=== PATIENT | male | born 2000 | race Caucasian/White ===

== ENCOUNTER 2024-03-07 11:09 | Outpatient (AMB) | payer BC, SELFPAY ==
--- NOTE | 2024-03-07 11:17 | A.OFFPC_ITS ---
Vital Signs 03/07/24 11:27 Height 6 ft 1 in Weight 165 lb BMI 21.8 BP 118/66 Blood Pressure Location Rt brachial Position Sitting Respiration 12 Pulse 78 Pulse Source Pulse Oximeter Pulse Oximetry (%) 99 Oxygen Delivery Method Room Air Intake Visit Reasons: RN MANAGED CARE-PE Intake Note: new patient to [facility] Required: No Allergies No Known Allergies Allergy (Verified 03/07/24 11:38) Medication List - Last Reconciled 03/07/24 by GISELA Guo No Known Home Meds Tobacco use date assessed: 03/07/24 Dental Screening Dental Screen Date: 03/07/24 Did you have a dental visit in the last 12 months?: Yes Did you have a dental problem in the last 6 months where you did not have access to dental care?: No Was dental information given to patient?: Patient has dentist HPI HPI Comments History of Present Illness Details 23 y/o M with GERD Family hx: Dad etoh, brother crohns, mom asthma Health Maintenance: Flu declined Tdap declined The patient is a 23-year-old male presenting to [facility] & for CPE. No medical records available to me. COVID-19 infection from early to late January, which was managed symptomatically with [id number]-byuibrr medications such as Advil. Post-COVID, he experienced a persistent cough which has now mostly resolved but occasionally recurs. This is accompanied by no history of asthma despite a family history, and he has not used an inhaler since discontinuing sports. c/o gastroesophageal reflux disease (GERD) Skin concerns: presents as red bumps on his lower back and side of R thigh Regarding gastroesophageal reflux disease, the patient has noticed episodes of reflux, which were particularly well controlled with dietary changes while living independently in [place]. He identified triggers such as sugar and certain dairy and water types, preferring alkaline options like [place] water. At times, he uses TUMS for relief. He was evaluated several years ago via endoscopy, which took place during his late adolescence but cannot recall specific details. He experiences symptoms contingent on dietary choices, particularly when consuming processed foods or drinking before sleeping. - Exercise: Previously active in sports, now focuses on workout activities sporadically. - Nutrition: Consumes a diet low in proc essed sugar and meat when possible, noted difference when living alone. - Substance use: Denies smoking and vapi ng. Review of Systems - Respiratory: Reports occasional cough post-COVID. - Skin: Reports red bumps on lower back and sides. - Gastrointestinal: Reports episodes of acid reflux, controlled with dietary changes and occasionally with TUMS. - Musculoskeletal: Denies recent exercis e-induced issues. General: Well developed, well nourished, in no acute distress. Appears stated age. Head: Normocephalic, atraumatic. Eyes: Pupils are equal, round and reactive to light and accommodation. Conjunctivae are clear. Vision grossly normal. Ears: TMs clear AU, EACS WNL Nose: Patent, without discharge. Mouth: There are no ulcers or lesions noted. No inflammation, no post nasal drip, no plaques nor exudates. Neck: Supple, no adenopathy or thyromegaly. Lungs: Clear to auscultation bilaterally. No rales, rhonchi or wheeze noted. Good air flow in all darden. Heart: Regular rate and rhythm. No murmurs, click, rubs or gallops are noted. Abdomen: Bowel sounds present in all quadrants. The abdomen is soft, nontender, with no masses or organomegaly noted. No hernias are noted. Musculoskeletal: Joints are nontender, without swelling, redness, or effusions. Range of motion is observed to be normal. Pulses: Peripheral pulses are equal and palpable bilaterally. Extremities: No clubbing, cyanosis nor edema is noted. Neurologic: Gait and station normal. Cranial Nerves 2-12 intact. Motor strength grossly symmetrical and intact. No sensory loss. Balance normal. Skin: No rashes, ulcers, or lesions noted. Turgor is good. Skin color is good. Hair and nails are without abnormalities. Scattered erythematous papules on posterior trunk, top of right buttocks and lateral right thigh consistent with keratosis pilaris Psych: Normal eye contact, affect and mood appropriate, and normal interactions. Patient is alert and appropriate to context. Discussion Notes I discussed with the patient the need for dietary modifications to manage gastroesophageal reflux disease effectively, emphasizing the importance of monitoring for symptoms. We reviewed the potential risks of chronic GERD, including esophageal damage and increased cancer risk. I explained the benefit of a short Protonix course if symptoms persist. For skin concerns, I recommended using a salicylic acid body wash to address folliculitis, noting its prevalence and treatment effectiveness. He can also trial using a retinoid topical cream. We addressed the relevance of routine blood work for general monitoring and explained how annual physical exams contribute to preventive care. Patient does report that he faints with blood draws and would prefer to have them done in the nonfasting state. I reinforced the necessity of signing up for the patient portal for efficient communication and accessing lab results. Follow-up discussions centered on ensuring active health management and prevention. Plan - Monitor GERD symptoms; dietary modific ations suggested, including the reduction of sugar intake and the avoidance of trigger foods. - Consider short course of Protonix for more severe or frequent GERD symptoms, with a reassessment in four weeks. - Recommend salicylic acid body wash for skin lesions to manage folliculitis effectively. Or topical retinol, available OTC. - Schedule for routine blood work to mon itor cholesterol, kidney function, and other health indicators. - Advise patient on the importance of an nual physical exams to maintain health monitoring and preventative care. RTO 1 year for CPE, sooner PRN Patient was informed and verbally consented to the use of an ambient scribe for clinic note documentation during this visit. [facility] Medical History (Updated 03/07/24 @ 12:09 by Sharona Russo [facility]) No pertinent past medical history Surgical History (Updated 03/07/24 @ 11:27 by Lisa Rodríguez MA) H/O wrist surgery Family History (Updated 03/07/24 @ 11:26 by Lisa Rodríguez MA) Sister Mental health disorder Asthma Father Substance abuse Mother Asthma Brother Asthma Social History (Updated 03/07/24 @ 11:25 by Lisa Rodríguez MA) Household Members: Family Both parents involved: No Caregiver staying overnight: No Housing: House Are you a primary rn progressive care unit to a significant other at home: No Do you presently have visiting nurse or other home services: No 75 years or older and lives alone: No Alcohol intake: current Alcohol intake frequency: a few times a month Patient Tobacco Use Status: Never used Tobacco e-Cigarette/Vaping Use: Never Used Second Hand Smoke Exposure: No Current occupational status: employed Current occupation: buisness Cognitive needs: No Hearing needs: No Vision needs: No Questionnaire PHQ-9 Over the last 2 weeks, how often have you been bothered by any of the following problems? 1. Little interest or pleasure in doing things: not at all 2. Feeling down, depressed, or hopeless: not at all 3. Trouble falling or staying asleep, or sleeping too much: not at all 4. Feeling tired or having little energy: not at all 5. Poor appetite or overeating: not at all 6. Feeling bad about yourself - or that you are a failure or have let yourself or your family down: not at all 7. Trouble concentrating on things, such as reading the newspaper or watching television: not at all 8. Moving or speaking so slowly that other people could have noticed. Or the opposite - being so fidgety or restless that you have been moving around a lot more than usual: not at all 9. Thoughts that you would be better off or of hurting yourself in some way: not at all Total score: 0 Depression Screening Interpretation: Negative Depression Screening Done: Yes 96470 - PHQ-9 Billing: Yes Source: Developed by Drs. Alan Wick, Coreen De Leon, Haim High and colleagues, with an educational celina from [employer]. Thrive Questionnaire Date Thrive assessed: 03/07/24 I am a: Patient What is your living situation today?: I have a steady place to live Within the past 12 months, did the food you bought not last and you didn't have the money to get more?: Never true Within the past 12 months, did you worry whether your food would run out before you got money to buy more?: Never true Do you have trouble paying for medicines?: No Do you have trouble getting transportation to medical appointments?: No Do you have trouble paying your heating and electricity bill?: No Do you have trouble taking care of your child, family member or friend?: No Do you have trouble with day-to-day activities such as bathing, preparing meals, shopping, managing finances, etc.?: No Are you currently unemployed and looking for a job?: No Are you interested in more education?: No Please select the resources that you would like help with: None Currently or been in a relationship where the following occur: No concerns reported THRIVE Score: 0 AUDIT C Alcohol Use Questionnaire (AUDIT-C) 1. How often do you have a drink containing alcohol?: Monthly or less 2. How many drinks containing alcohol do you have on a typical day when you are drinking?: 1 or 2 3. How often do you have six or more drinks on one occasion?: Never Total Score: 1 Score Reviewed/Action Taken: Yes ERMA-7 AMB Questionnaire ERMA-7 Date ERMA - 7 assessed: 03/07/24 Feeling nervous, anxious, or on edge: 0 = Not at all Not being able to stop or control worryin = Not at all Worrying too much about different things: 0 = Not at all Trouble relaxin = Not at all Being so restless that it is hard to sit still: 0 = Not at all Becoming easily annoyed or irritable: 0 = Not at all Feeling afraid as if something awful might happen: 0 = Not at all Total ERMA-7 score (0-4 normal; 5-9 mild; 10-14 moderate; 15-21 severe): 0 Source: Developed by Drs. Alan Wick, Coreen De Leon, Haim High and colleagues, with an educational celina from [employer]. ERMA-7 Assessment Billing ERMA-7 Assessment Tool: ERMA-7 Assessment 80077 Physical exam (Primary Care) Vital Signs: Last Vital Signs Pulse 78 03/07/24 11:27 Resp 12 03/07/24 11:27 BP 118/66 03/07/24 11:27 Pulse Ox 99 03/07/24 11:27 Oxygen Delivery Method Room Air 03/07/24 11:27 BMI result Body Mass Index 21.8 Tobacco/Smoking Status: Tobacco use Status Tobacco use date assessed 03/07/24 03/07/24 11:29 Patient Tobacco Use Status Never used Tobacco 03/07/24 11:29 e-Cigarette/Vaping Use Never Used 03/07/24 11:29 PHQ-9: PHQ-9 Score PHQ-9: Total score 0 03/07/24 11:40 Depression Screening Interpretation: Negative Thrive Assessment: Date of Thrive Assessment Date Thrive assessed 03/07/24 03/07/24 11:19 Currently or been in a relationship where the following occur: No concerns reported Coding Level of Care Code New Pt Prev Care 18-39yr(73092 Diagnoses Encounter for general adult medical examination without abnormal findings Z00.00 Gastroesophageal reflux disease with esophagitis without hemorrhage K21.00 Esophagitis bleeding: without hemorrhage Keratosis pilaris L85.8 Personal history of COVID-19 Z86.16 Laboratory exam ordered as part of routine general medical examination Z00.00 Additional Codes ERMA-7 Assessment Billing - ERMA-7 Assessment Tool: ERMA-7 Assessment 74137 ([id number]) PHQ-9 - 14836 - PHQ-9 Billing: Yes ([id number]) Assessment & Plan Assessment & Plan (1) Encounter for general adult medical examination without abnormal findings: Code(s): Z00.00 - Encounter for general adult medical examination without abnormal findings (2) GERD with esophagitis: Code(s): K21.00 - Gastro-esophageal reflux disease with esophagitis, without bleeding Category: Medical Qualifiers: Esophagitis bleeding: without hemorrhage Qualified Code(s): K21.00 - Gastro-esophageal reflux disease with esophagitis, without bleeding (3) Keratosis pilaris: Code(s): L85.8 - Other specified epidermal thickening Category: Medical (4) Personal history of COVID-19: Code(s): Z86.16 - Personal history of COVID-19 Category: Medical (5) Laboratory exam ordered as part of routine general medical examination: Code(s): Z00.00 - Encounter for general adult medical examination without abnormal findings Category: Medical Plan . Orders: Orders Comprehensive Met. Panel Today Z00.00 - Encounter for general adult medical examination without abnormal findings Complete Blood Count no Diff Today Z00.00 - Encounter for general adult medical examination without abnormal findings Hemoglobin A1c Today Z00.00 - Encounter for general adult medical examination without abnormal findings LDL Cholesterol Direct Today Z00.00 - Encounter for general adult medical examination without abnormal findings Microalbumin, Random (w Creat) Today Z00.00 - Encounter for general adult medical examination without abnormal findings TSH reflex Free T4 Today Z00.00 - Encounter for general adult medical examination without abnormal findings Vitamin B12 and Folate Today Z00.00 - Encounter for general adult medical examination without abnormal findings Patient Instructions: Try Selsun Blue Shampoo with salicylic acid, wash daily with this or you can use an over the counter cream with retinol in it at night. An example is Gold Echols. Walk-In Care (Urgent Care): We Make it Easy Walk-in for urgent medical issues such as: ? Seasonal Allergies ? Insect Bites ? Cough ? Diarrhea ? Acute Asthma Attacks ? Back, Knee or Joint Pain ? Ear Infection ? Fever without a Rash ? Headaches ? Nausea ? [place] Eye, Rash or Skin Irritation ? Sore Throat ? Sports Physicals ? Vomiting Most insurances are accepted. Patients do not need to be part of the [facility] to seek care at the walk-in clinic. Locations [address] , [place] [address] ? [phone] [facility] Walk-In Care in [place] provides services to ages 18 and over. Open Sunday-Sunday: 8 a.m. to 5 p.m. and Sunday: 9 a.m. to 3 p.m.* *Hours may vary due to staffing availability. To confirm Walk-In Care hours in [place], please call [phone]. [address] [place] [address] ? [phone] [facility] Walk-In Care in [place] provides services to ages 12 and over. Open Sunday-Sunday: 8 a.m. to 5 p.m. Hours may vary due to staffing availability. To confirm Walk-In Care hours in [place], please call [phone]. LABORATORY SERVICES: [facility] ? Primary Location [address] [place] [address] Sunday through Sunday 6:00 AM ? 5:00 PM Sunday 7:00 AM ? 11:00 AM* [phone] The [facility] is centrally located near the front entrance of the [facility] for easy outpatient access. Convenient parking is provided for outpatients. *Hours may vary due to staffing availability. To confirm Laboratory hours for any location, please call [phone]. Offsite Location For your convenience, we offer offsite laboratory draw stations at the following locations: [address] [place] [address] ? [facility] [address], [address] [place] [address] Sunday through Sunday 7:30 AM ? 1:00 PM* [phone] *Hours may vary due to staffing availability. To confirm Laboratory hours for any location, please call [phone]. [place] ? [address] Sunday through Sunday 6:00 AM ? 3:30 PM* Sunday 6:30 AM ? 3 PM* [phone] *Hours may vary due to staffing availability. To confirm Laboratory hours for any location, please call [phone]. [address] [facility] Sunday through Sunday 7:30 AM ? 4:00 PM* [phone] *Hours may vary due to staffing availability. To confirm Laboratory hours for any location, please call [phone]. [address] [facility] Sunday through 9:00 AM ? 4:00 PM* *Hours may vary due to staffing availability. To confirm Laboratory hours for any location, please call [phone]. Appointments are not necessary. Walk-ins are welcome. Like all the departments throughout the [facility], our Lab undergoes frequent reviews to ensure the quality and accuracy of test results, and our staff takes special pride in its status as a nationally accredited facility. Patient Portal: ONE PATIENT. ONE RECORD. BETTER CARE. [facility] has a fully integrated, cutting- edge mobile electronic health information system that has revolutionized the way we care for our patients and manage our organization. This system improves communication and coordination enabling us to provide safe, higher-quality care, and an overall positive experience for staff and patients. Our first priority, as always, is to deliver the highest quality care possible. The system is running in the background supporting that priority. This portal is for all [facility] and [facility] services and practices. If you are experiencing any technical difficulties with enrolling or logging into the Patient Portal please complete the [facility] Patient Portal Technical Support Form. [facility] and [facility] now offers a new secure on-line interactive tool for patients to review their health information ? ?Patient Portal. This interactive web portal will enable patients and their families to take an active role in their care by providing easy, secure access to their health information via the internet. The Patient Portal provides patients with instant access to their health information, including laboratory results, medications, allergies, demographic information, visit history, and more. In addition to managing their own care, parents and health care proxies with authorized consent will appreciate the ability to access the records of those individuals for whom they provide care. Please note: if you wish to gain access (Proxy) to another patient?s portal, you will be required to come to the Medical Records Department in person at [facility]. Both the patient giving proxy access and the proxy will need to provide photo identification and complete the appropriate authorization. The Patient Portal also allows track their appointments online. The [facility] Patient Portal also saves patients time by allowing them to submit updates to their demographic and contact information prior to their visits. Portal email notifications will also alert patients to any new activity on their portal, such as test results and new appointments. In order to initially enroll in the [facility] Patient Portal, you will need to enter some required information including the following: * your [facility] Medical Record number * your personal home email address * name * date of Please note: In order to enroll in the [facility] Patient Portal, we need to have your email address on file in your electronic medical record. ?The email address needs to be specific for one person (yourself) in order for your Portal enrollment to be successful. ?You can update your email address in person with our Registration staff when you are registering for a hospital visit. ?Otherwise, you will need to come to the Health Information Management (Medical Records) Department at [facility]. ?We are open from Sunday ? Sunday from 7:30 a.m. ? 4:30 p.m. ?You will be required to present a photo id. Once you have successfully enrolled in the Patient Portal, you will receive a one-time user id and password for the Portal, sent to your email address. ?This will allow you to log into the Patient Portal within 99 hrs and reset your own logon id and password, and define personal security questions. ?Once your pe rmanent login and password have been set, you can log into the [facility] Patient Portal at any time via the blue button above or from the Portal Logon button on any page of the [facility] website. [facility] and [facility] encourage all of our patients to enroll in Patient Portal as it presents a valuable opportunity for patients and their families to actively participate in their care and stay healthy Welcome to [facility]. ?We look forward to working with you. Health screenings for men You should visit your health care provider regularly, even if you feel healthy. The purpose of these visits is to: Screen for medical issues Assess your risk for future medical problems Encourage a healthy lifestyle Update vaccinations and other preventive care services Help you get to know your provider in case of an illness Information Even if you feel fine, you should still see your provider for regular checkups. These visits can help you avoid problems in the future. For example, the only way to find out if you have high blood pressure is to have it checked regularly. High blood sugar and high cholesterol level also may not have any symptoms in the early stages. Simple blood tests can check for these conditions. There are specific times when you should see your provider or receive specific health screenings. The [place] Preventive Services Task Force publishes a list of recommended screenings. Below are screening guidelines for men ages 40 to 64. BLOOD PRESSURE SCREENING Have your blood pressure checked at least once every year. Watch for blood pressure screenings in your area. Ask your provider if you can stop in to have your blood pressure checked. Ask your provider if you need your blood pressure checked more often if: You have diabetes, heart disease, kidney problems, or are overweight or have certain other health conditions You have a first-degree relative with high blood pressure You are Black Your blood pressure top number is from 120 to 129 mm Hg, or the bottom number is from 70 to 79 mm Hg If the top number is 130 mm Hg or greater or the bottom number is 80 mm Hg or greater, this is considered stage 1 hypertension. Schedule an appointment with your provider to learn how you can lower your blood pressure. Effects of age on blood pressure CHOLESTEROL SCREENING Cholesterol screening should begin at age 35 for men with no known risk factors for coronary heart disease. Repeat cholesterol screening should take place: Every 5 years for men with normal cholesterol levels More often if changes occur in lifestyle (including weight gain and diet) More often if you have diabetes, heart disease, kidney problems, or certain other conditions COLORECTAL CANCER SCREENING If you are under age 45, talk to your provider about getting screened. You may need to be screened if you have a strong family history of colon cancer or polyps. Screening may also be considered if you have risk factors such as a history of inflammatory bowel disease or polyps. If you are age 45 to 75, you should be screened for colorectal cancer. There are several screening tests available: A stool-based fecal occult blood (gFOBT) or fecal immunochemical test (FIT) every year A stool sDNA test every 1 to 3 years Flexible sigmoidoscopy every 5 years or every 10 years with stool testing FIT done every year CT colonography (virtual colonoscopy) every 5 years Colonoscopy every 10 years You may need a colonoscopy more often if you have risk factors for colorectal cancer, such as: Ulcerative colitis A personal or family history of colorectal cancer A history of growths in your colon called adenomatous polyps DENTAL EXAM Go to the dentist once or twice every year for an exam and cleaning. Your dentist will evaluate if you have a need for more frequent visits. DIABETES SCREENING All adults who do not have risk factors for diabetes should be screened starting at age 35 and repeated every 3 years. If you have other risk factors for diabetes, such as a first degree relative with diabetes, overweight or obesity, high blood pressure, prediabetes, or a history of heart disease, you may be tested more often. If you are overweight and have other risk factors, such as high blood pressure and are planning to become , screening is recommended. EYE EXAM Have an eye exam every 2 to 4 years ages 40 to 54 and every 1 to 3 years ages 55 to 64. Your provider may recommend more frequent eye exams if you have vision problems or glaucoma risk. Have an eye exam that includes an examination of your retina (back of your eye) at least every year if you have diabetes. IMMUNIZATIONS Commonly needed vaccines include: Flu shot: get one every year COVID-19 vaccine: ask your provider what is best for you Tetanus-diphtheria and acellular pertussis (Tdap) vaccine: have as one of your tetanus-diphtheria vaccines if you did not receive it as an adolescent Tetanus-diphtheria: have a booster (or Tdap) every 10 years Varicella vaccine: receive 2 doses if you never had chickenpox or the varicella vaccine and were born in 1979 or after Hepatitis B vaccine: receive 2, 3, or 4 doses, depending on your exact circumstances, if you did not receive these as a child or adolescent, until age 59 Shingles (herpes zoster) vaccine: at or after age 50 Ask your provider if you should receive other immunizations, especially if you have certain medical conditions, such as diabetes or are at increased risk for some diseases such as pneumonia. INFECTIOUS DISEASE SCREENING Screening for hepatitis C: all adults ages 18 to 79 should get a one-time test for hepatitis C. Screening for human immunodeficiency virus (HIV): all people ages 15 to 65 should get a one-time test for HIV. Depending on your lifestyle and medical history, you may need to be screened for infections such as syphilis, chlamydia, and other infections. LUNG CANCER SCREENING You should have an annual screening for lung cancer with low-dose computed tomography (LDCT) if: You are age 50 to 80 years AND You have a 20 pack-year smoking history AND You currently smoke or have quit within the past 15 years OSTEOPOROSIS SCREENING If you are age 50 to 64 and have risk factors for osteoporosis, you should discuss screening with your provider. Risk factors can include long-term steroid use, low body weight, smoking, heavy alcohol use, having a fracture after age 50, or a family history of hip fracture or osteoporosis. Osteoporosis PHYSICAL EXAM All adults should visit their provider from time to time, even if they are healthy. The purpose of these visits is to: Screen for diseases Assess risk of future medical problems Encourage a healthy lifestyle Update vaccinations and other preventive care services Maintain a relationship with a provider in case of an illness Your height, weight, and body mass index (BMI) should be checked at every exam. During your exam, your provider may ask you about: Depression and anxiety Diet and exercise Alcohol and tobacco use Safety, such as use of seat belts and smoke detectors Your medicines and risk for interactions PROSTATE CANCER SCREENING If you're 55 through 69 years old, before having the test, talk to your provider about the pros and cons of having a PSA test. Ask about: Whether screening decreases your chance of dying from prostate cancer. Whether there is any harm from prostate cancer screening, such as side effects from testing or overtreatment of cancer when discovered. Whether you have a higher risk of prostate cancer than others. If you are age 55 or younger, screening is not generally recommended. You should talk with your provider about if you have a higher risk for prostate cancer. Risk factors include: Having a family history of prostate cancer (especially a brother or father) Being If you choose to be tested, the PSA blood test is repeated over time (yearly or less often), though the best frequency is not known. Prostate examinations are no longer routinely done on men with no symptoms. Prostate cancer SKIN EXAM Your provider may check your skin for signs of skin cancer, especially if you're at high risk. People at high risk include those who have had skin cancer before, have close relatives with skin cancer, or have a weakened immune system. TESTICULAR EXAM The [place] Preventive Services Task Force (USPSTF) now recommends against performing testicular self-exams. Doing testicular self-exams has been shown to have little to no benefit.
[2024-03-07 11:27] VITALS: BP 118/66; PULSE 78; RESP 12; O2SAT 99; BMI 21.8
== END 2024-03-07 12:12 | disposition home or self-care (01) ==
PROVIDERS: PCP Nurse Practitioner Family; Visit Provider Nurse Practitioner Family
DX: Z00.00 Encounter for general adult medical examination without abnormal findings (principal); K21.00 Gastro-esophageal reflux disease with esophagitis, without bleeding; L85.8 Other specified epidermal thickening; Z86.16 Personal history of COVID-19

== ENCOUNTER → 2024-03-07 11:09 | Outpatient (BNVA) | payer BC, SELFPAY | PROVIDERS: PCP Nurse Practitioner Family; Visit Provider Nurse Practitioner Family | DX: Z00.00 Encounter for general adult medical examination without abnormal findings (principal); K21.00 Gastro-esophageal reflux disease with esophagitis, without bleeding; L85.8 Other specified epidermal thickening; Z86.16 Personal history of COVID-19 | CPT/HCPCS: 96127 ==

== ENCOUNTER 2024-06-05 12:57 | Outpatient (AMB) | payer BC, SELFPAY ==
--- NOTE | 2024-06-05 13:08 | A.OFFPC_ITS ---
Vital Signs 06/05/24 13:10 Height 6 ft 1 in Weight 157 lb 8 oz BMI 20.8 BP 110/74 Blood Pressure Location Rt brachial Position Sitting Respiration 16 Pulse 107 H Pulse Source Pulse Oximeter Temp 98.8 F Temp Source Oral Pulse Oximetry (%) 99 Oxygen Delivery Method Room Air Intake Visit Reasons: bump in groin area Intake Note: patient is here for bump in groin region Technical Staff Assistant Required: No Allergies No Known Allergies Allergy (Verified 06/05/24 13:10) Medication List - Last Reconciled 06/05/24 by Manolo Schwab MD No Known Home Meds Tobacco use date assessed: 03/07/24 Dental Screening Dental Screen Date: 03/07/24 HPI bump in groin area HPI Details 23 y/o male presents today with complain ts of a bump in his groin area. He denies any pain. [facility] Medical History (Updated 06/05/24 @ 13:18 by Robbi Johnson) No pertinent past medical history Surgical History (Updated 03/07/24 @ 11:27 by Lisa Rodríguez MA) H/O wrist surgery Family History (Updated 03/07/24 @ 11:26 by Lisa Rodríguez MA) Sister Mental health disorder Asthma Father Substance abuse Mother Asthma Brother Asthma Social History (Updated 03/07/24 @ 11:25 by Lisa Rodríguez MA) Household Members: Family Housing: House Are you a primary insurance healthcare consultant to a significant other at home: No Do you presently have visiting nurse or other home services: No Alcohol intake: current Alcohol intake frequency: a few times a month Patient Tobacco Use Status: Never used Tobacco e-Cigarette/Vaping Use: Never Used Second Hand Smoke Exposure: No Current occupational status: employed Current occupation: buisness Cognitive needs: No Hearing needs: No Vision needs: No Questionnaire Thrive Questionnaire Date Thrive assessed: 03/07/24 I am a: Patient What is your living situation today?: I have a steady place to live Within the past 12 months, did the food you bought not last and you didn't have the money to get more?: Never true Within the past 12 months, did you worry whether your food would run out before you got money to buy more?: Never true Do you have trouble paying for medicines?: No Do you have trouble getting transportation to medical appointments?: No Do you have trouble paying your heating and electricity bill?: No Do you have trouble taking care of your child, family member or friend?: No Do you have trouble with day-to-day activities such as bathing, preparing meals, shopping, managing finances, etc.?: No Are you currently unemployed and looking for a job?: No Are you interested in more education?: No Please select the resources that you would like help with: None Currently or been in a relationship where the following occur: No concerns reported THRIVE Score: 0 ERMA-7 AMB Questionnaire ERMA-7 Date ERMA - 7 assessed: 03/07/24 Source: Developed by Drs. Alan Wick, Coreen De Leon, Haim High and colleagues, with an educational celina from [employer]. Review of Systems Const Denies chills, Denies fatigue, Denies fever(s), Denies headache(s) and Denies weakness ENT Denies dizziness and Denies headache(s) Card Denies dyspnea Resp Denies cough, Denies dyspnea, Denies wheezing and Denies other (shortness of breath) Musc Denies numbness and Denies tingling Neuro Denies dizziness, Denies headache(s), Denies numbness, Denies tingling and Denies weakness Psych Denies anxiety and Denies depression Endo Denies fatigue Aller/Immun Denies wheezing Physical exam (Primary Care) Vital Signs: Last Vital Signs Temp 98.8 F 06/05/24 13:10 Pulse 107 H 06/05/24 13:10 Resp 16 06/05/24 13:10 BP 110/74 06/05/24 13:10 Pulse Ox 99 06/05/24 13:10 Oxygen Delivery Method Room Air 06/05/24 13:10 BMI result Body Mass Index 20.8 Tobacco/Smoking Status: Tobacco use Status Tobacco use date assessed 03/07/24 06/05/24 13:12 Patient Tobacco Use Status Never used Tobacco 06/05/24 13:12 e-Cigarette/Vaping Use Never Used 06/05/24 13:12 Thrive Assessment: Date of Thrive Assessment Date Thrive assessed 03/07/24 06/05/24 13:12 Currently or been in a relationship where the following occur: No concerns reported Const General: well developed; No acute distress Nutritional Appearance: well nourished Orientation/consciousness: patient oriented x3 [facility] Head: Yes normocephalic and Yes atraumatic Eyes General: appearance normal, both eyes and all related structures Pupils: Equal, round and reactive pupils present EOM: EOMs intact bilaterally Resp Effort & Inspection: normal respiratory effort Neuro General: patient oriented x3 and gait normal Cranial nerves: Yes Equal, round and reactive pupils present Psych Affect: normal affect Coding Level of Care Code Est Pt Level 3 (01663) Diagnoses Infection of skin L08.9 Assessment & Plan Assessment & Plan (1) Infection of skin: Code(s): L08.9 - Local infection of the skin and subcutaneous tissue, unspecified Category: Medical Plan: Mild?infection?of?skin?at?right?groin.??Firm with Minimal?fluctuance and?minimal?erythema.??No?streaking. Will?give?him?a?script?for?cephalexin.??Advised?warm?compresses He?will?call?or?return?to?office?if?worsening?not?improving. Orders: Orders Comprehensive Met. Panel Today L08.9 - Local infection of the skin and subcutaneous tissue, unspecified CT NG by PCR Today L08.9 - Local infection of the skin and subcutaneous tissue, unspecified, Z11.3 - Encounter for screening for infections with a predominantly sexual mode of transmission Complete Blood Count Auto Diff Today L08.9 - Local infection of the skin and subcutaneous tissue, unspecified, Z00.00 - Encounter for general adult medical examination without abnormal findings Medications: New cephalexin 500 mg PO Q12H 10 days 20 caps 0RF
[2024-06-05 13:10] VITALS: BP 110/74; PULSE 107; RESP 16; TEMP 37.1; O2SAT 99; BMI 20.8
--- OUTSIDE RECORDS SUMMARY | 2024-06-05 15:35 | XMS_ITS | Encounter Summary ---
Author Organization [facility] Address [address] [place] [address] Phone Care Team Providers Care Paste Up Copy Camera Operator Name Role Phone Juan Saavedra MD Primary Care Provider [phone] Encounter Details Date Type Department Care Team (Late st Contact Info) Description 12/07/2011 [place]ation [facility] [place] [address] [place] [address] Family Medicine, Physician [address] [place] [address] Social History Tobacco Use Types Packs/Day Years Used Date Smoking Tobacco: Never Assessed Sex and Gender Information Value Date Recorded Sex Assigned at Not on file Legal Sex Male 5:09 PM EDT Gender Identity Not on file Sexual Orientation Not on file documented as of this encounter Plan of Treatment Not on file documented as of this encounter Visit Diagnoses Not on filedocumented in this encounter Care Teams Paste Up Copy Camera Operator Relationship Specialty Start Date End Date Juan Saavedra MD [address] [place] [address] [place] [address] PCP - General Pediatrics 04/03/17 10/03/22 documented as of this encounter
--- OUTSIDE RECORDS SUMMARY | 2024-06-05 15:35 | XMS_ITS | Encounter Summary ---
Author Organization [facility] Address [address] [place] [address] Phone Care Team Providers Care Quarter Seamer Name Role Phone Juan Saavedra MD Primary Care Provider [phone] Encounter Details Date Type Department Care Team (Late st Contact Info) Description 02/22/2015 Documentation [facility] [place] [address] [place] [address] Family Medicine, [place] [address] Social History Tobacco Use Types [...] on filedocumented in this encounter Care Teams Quarter Seamer Relationship Specialty Start Date End Date Juan Saavedra MD [address] [place] [address] [place] [address] PCP - General Pediatrics 04/03/17 10/03/22 documented as of this encounter
--- OUTSIDE RECORDS SUMMARY | 2024-06-05 15:35 | XMS_ITS | Clinical Summary ---
Author Organization [facility] Address [address] [place] [address] Phone Care Team Providers Care Backup Administrative Coordinator Name Role Phone Unavailable Primary Care Provider Unavailabl e Allergies Active Allergy Reactions Criticality Noted Date Comments Milk Protein 09/18/2017 Medications No known medications Active Problems Problem Noted Date Diagnosed Date Gastroesophageal reflux disease without esophagi tis 09/18/2017 History of epistaxis 06/22/2017 Overview (06/22/2017): Frequent severe epistaxis. Consult with /ENT requested 05/2017. Syncope 12/29/2016 Overview (03/20/2017): Had a couple of episodes of syncope/pre syncope with exertion ([place] [facility] ER eval 12/13/16 - EKG nl, CXR nl, labs ok. Given IV fluids. [facility]/ Dr. Castro for f/u. Cardiac Echo 12/15/16 -normal. Stress test normal. No cardiac pathology and has been cleared for sports from cardiac standpoint. Had eval with Dr. Bravo- Had normal spirometry and normal methacholine challenge test next - no evidence of asthma. Hyperventilation may be possible. Saw Dr. Marie/sports medicine who felt he might have vocal cord dysfunction. Saw ENT/ and had laryngoscopy and no vocal cord dysfunction. They saw erythema of the post commisure and thought he had GERD and have put him on omeprazole 20 mg daily. 03/15 Acne vulgaris 01/06/2015 Overview (01/14/2020): Hx: On an acne wash daily and on tretinoin 0.025 % cream qhs- started 01/10. Topical clindamycin soln added after 3 weeks when tretinoin helping but not enough. 01/10. Sees derm. Now on Epiduo with good results. On adapalene, topical clinda, and benzoyl peroxide. Current as of 12/2019: BP every few days, Stridex pads Plan: Retin A daily Oral antibiotic for a few months CeraVe Cleanser Assessment & Plan (01/14/2020 1:45 PM EST): Tretinoin cream qHS. BP 5% cream/gel + clindamycin in the morning, a few times/week Doxycycline 100 mg cap QD x few months F/u in [address] Saavedra Resolved Problems Problem Noted Date Diagnosed Date Resolved Date Need for case management follow-up 01/06/2020 06/25/2022 Overview (01/06/2020): Needs teen urine screen. Mild persistent asthma 11/15/201608/03 Overview (12/29/2016): Mild symptoms with exertion and occasionally with seasonal allergy symptoms. Using albuterol prior to strenuous exercise and for rescue therapy on occasion.On daily flovent bid. Immunizations Immunization Administration Dates Next Due DTaP 5 08/25/2005, 3,01/31/2002,12/13,2001 H1N1 01/29/2009,12/24/2008 HPV Vaccine 9 Valent 02/25/2018,09/18/2017,08/03 Hep A, ped/adol 08/12/2015,08/12/2014 Hep B, ped/adol 01/31/2002,2001,2001 Hib (PRP-T) 11/19/2002, 2,2001,10/16 IPV 08/25/2005, 3,2001,10/16 Influenza, injectable, quadr ivalent, preservative free 12/29/2019 Influenza, injectable, trivalent 03/12/2003,01/26 MMR 08/25/2005,08/13/2002 Meningococcal Conj (Menactra) MCV4P 08/07/2018,0 08/12/2014 Pneumococcal Conjugate 11/19/2002,2002,2001,10/16 Tdap 09/09/2012 Varicella 08/18/2008,08/13/2002 Family History Medical History Relation Name Comments Crohn's disease Brother Isaiah Grimaldo No Known Problems Father Demetrio Grimaldo No Known Problems Mother Marcel Hutchinson No Known Problems Sister Satnam Grimaldo Relation Name Status Comments Brother Isaiah Grimaldo Alive Brother: Alive and well Father Demetrio Grimaldo Alive Father: Alive a nd well Mother Marcel Hutchinson Alive Mother: Asthma Paternal Grandfather Paterna l grandfather: primary biliary cirrhosis Sister Satnam Grimaldo Alive Sister: Alive a nd well Social History Tobacco Use Types Packs/Day Years Used Date Smoking Tobacco: Never Smokeless Tobacco: Never Comments:Never smoker Alcohol Use Standard Drinks/Week Comments Never 0 (1 standard drink = 0.6 oz pur e alcohol) Hunger/Food Answer Date Recorded In the last 12 months, did y tashia or your family ever eat less than you felt you should because there wasn't enough money for food? No 06/23/2022 Stable Housing Answer Date Recorded Are you worried that in the next 2 months you may not have stable housing? No 06/23/2022 Transportation Concerns Answer Date Rec orded In the last 12 months, have you or your family ever had to go without healthcare because you didn't have a way to get there? No 06/23/2022 Hazards in Home Answer Date Recorded Think about the place you li ve. Do you have problems with any of the following? Pests (mice or roaches), mold, no/not working smoke detectors, water leaks, no window guards. No 2022 Financing Utilities Answer Date Recorde d In the last 12 months, has t he electric, gas, oil, or water company threatened to shut off your services in your home? No 06/23/2022 Safety at Home Answer Date Recorded Are you or your family worried about feeling saf e in your home? No 06/23/2022 Outside Support Answer Date Recorded Do you feel that you need mo re support from other people or programs to help you care for yourself or your family? No 06/23/2022 Understanding Health Concerns Answer Da te Recorded Do you need help understandi ng your or your child's healthcare needs (diagnosis, medications, plan, etc.)? No 06/23/2022 Financing Health Concerns Answer Date R ecorded In the last 12 months, was t here a time when your child needed to see a doctor or get medications or supplies but could not because of cost? No 06/23/2022 Missing School or Work Answer Date Michael rded Did you or your child miss s chool or work because of a health problem that could have been avoided? No 06/23/2022 Sex and Gender Information Value Date Recorded Sex Assigned at Not on file Legal Sex Male 5:09 PM EDT Gender Identity Not on file Sexual Orientation Not on file Last Filed Vital Signs Vital Sign Reading Time Taken Comments Blood Pressure 114/74 06/23/2022 11:02 AM EDT Pulse 69 06/23/2022 11:02 AM EDT Temperature 36.6 ??C (97.8 ??F) 06/23/2022 1 1:02 AM EDT Respiratory Rate 18 05/21/2019 3:50 PM EDT Oxygen Saturation 99% 05/21/2019 3:50 PM EDT Inhaled Oxygen Concentration - - Weight 74.3 kg (163 lb 12.8 oz) 023 11:02 AM EDT Height 182.9 cm (6') 06/23/2022 11:02 AM EDT Body Mass Index 22.22 06/23/2022 11:02 AM EDT Plan of Treatment Health Maintenance Due Date Last Done Comments Men B Vaccine (1 of 2 - Standard) 2017 DTaP,Tdap,and Td Vaccines (7 - Td or Tdap) 09/09/2022 09/09/2012, 08/25/2005, 02/09/2003, Additional history exists Influenza Vaccines (#1) 2023 12/29/19, 03/12/2003, 02/06/2003 COVID-19 Vaccine (2 - 2023-2 5 season) 2023 06/06/2020 Hepatitis B Vaccines Completed 01/31/2002, 2001, 2001 HIB Vaccines Completed 11/19/2002, 07/2001, 2001, Additional history exists Pneumococcal Vaccine Completed 11/19/2002, 05/07/2002, 2001, Additional history exists IPV Vaccines Completed 08/25/2005, 04/26, 2001, Additional history exists MMR Vaccines Completed 08/25/2005, 08/13/2002 Varicella Vaccines Completed 08/18/2008, 08/13/2002 Hepatitis A Vaccines Completed 08/12/2015, 08/13/19 15 HPV Vaccines Completed 02/25/2018, 08/27, 08/03/2017 Meningococcal Vaccine Completed 08/07/2018, 015
--- OUTSIDE RECORDS SUMMARY | 2024-06-05 15:35 | XMS_ITS | Encounter Summary ---
Author Organization [facility] Address [address] [place] [address] Phone Care Team Providers Care Bottle Cleaner Name Role Phone Juan Saavedra MD Primary Care Provider [phone] Encounter Details Date Type Department Care Team (Late st Contact Info) Description 07/08/2014 Documentation [facility] [place] [address] [place] [address] Family Medicine, Physician [facility] [place] [address] Social History Tobacco Use Types [...] on filedocumented in this encounter Care Teams Bottle Cleaner Relationship Specialty Start Date End Date Juan Saavedra MD [address] [place] [address] [place] [address] PCP - General Pediatrics 04/03/17 10/03/22 documented as of this encounter
--- OUTSIDE RECORDS SUMMARY | 2024-06-05 15:35 | XMS_ITS | Encounter Summary ---
Author Organization [facility] Address [address] [place] [address] Phone Care Team Providers Care Outside Plant Supervisor Name Role Phone Juan Saavedra MD Primary Care Provider [phone] Encounter Details Date Type Department Care Team (Late st Contact Info) Description 07/10/2014 Documentation [facility] [place] [address] [place] [address] Family Medicine, Physician [facility] [place] [address] Social History Tobacco Use Types [...] on filedocumented in this encounter Care Teams Outside Plant Supervisor Relationship Specialty Start Date End Date Juan Saavedra MD [address] [place] [address] [place] [address] PCP - General Pediatrics 04/03/17 10/03/22 documented as of this encounter
--- OUTSIDE RECORDS SUMMARY | 2024-06-05 15:35 | XMS_ITS | Encounter Summary ---
Author Organization [facility] Address [address] [place] [phone] Phone Care Team Providers Care Scoop Operator Name Role Phone Juan Saavedra MD Primary Care Provider [phone] Encounter Details Date Type Department Care Team (Late st Contact Info) Description 10/12/2016 Conversion Encounter [facility] [place] [address] [place] [address] Social History Tobacco Use Types Packs/Day Years Used Date Smoking Tobacco: Never Comments:Never smoker Sex and Gender Information Value Date Recorded Sex Assigned at Not on file Legal Sex Male 5:09 PM EDT Gender Identity Not on file Sexual Orientation Not on file documented as of this encounter Plan of Treatment Not on file documented as of this encounter Visit Diagnoses Not on filedocumented in this encounter Care Teams Scoop Operator Relationship Specialty Start Date End Date Juan Saavedra MD [address] [place] [address] PCP - General Pediatrics 04/03/17 10/03/22 documented as of this encounter
--- OUTSIDE RECORDS SUMMARY | 2024-06-05 15:35 | XMS_ITS | Encounter Summary ---
Author Organization [facility] Address [address] [place] [address] Phone Care Team Providers Care Table Filler Name Role Phone Juan Saavedra MD Primary Care Provider [phone] Encounter Details Date Type Department Care Team (Late st Contact Info) Description 02/05/2015 Documentation [facility] [place] [address] [place] [address] Family Medicine, Physician [facility] [place] [address] Social History Tobacco Use Types [...] on filedocumented in this encounter Care Teams Table Filler Relationship Specialty Start Date End Date Juan Saavedra MD [address] [place] [address] [place] [address] PCP - General Pediatrics 04/03/17 10/03/22 documented as of this encounter
== END 2024-06-05 13:31 | disposition home or self-care (01) ==
LOC: HO.HMCFM 12:58
PROVIDERS: PCP Nurse Practitioner Family; Visit Provider Family Medicine
DX: L08.9 Local infection of the skin and subcutaneous tissue, unspecified (principal)

== ENCOUNTER → 2024-06-05 12:57 | Outpatient (BNVA) | payer BC, SELFPAY | PROVIDERS: PCP Nurse Practitioner Family; Visit Provider Family Medicine ==

== ENCOUNTER 2024-06-05 13:21 | Outpatient (REF) | payer BC, SELFPAY ==
[2024-06-05 14:39] LABS: MANUAL DIFF FLAG NO
[2024-06-05 14:56] LABS: Basophils Absolute Auto 0.1 X10*3/uL (0.0-0.2); Basophils Percent Auto 1.1 % (0-2); Eosinophils Absolute Auto 0.1 X10*3/uL (0.0-0.4); Eosinophils Percent Auto 1.8 % (0-4); Hematocrit 49.2 % (42.0-52.0); Hemoglobin 16.9 g/dl (14.0-18.0); Imm Gran Abs Auto 0.01 X10*3/uL (0.00-0.03); Imm Gran Pct Auto 0.2 % (0.0-0.4); Lymphocytes Absolute Auto 1.5 X10*3/uL (1.2-4.9); Lymphocytes Percent Auto 33.8 % (20-40); Mean Corpuscular HGB Conc 34.3 g/dl (31.0-36.0); Mean Corpuscular Hemoglobin 31.5 pg (27.0-33.0); Mean Corpuscular Volume 91.6 fL (80.0-98.0); Mean Platelet Volume 10.7 fL (9.4-12.4); Monocytes Absolute Auto 0.5 X10*3/uL (0.1-1.2); Neutrophils Absolute Auto 2.2 x10*3/uL (2.0-8.3); Neutrophils Percent Auto 51.1 % (45-73); Platelet Count 230 X10*3/uL (160-400); Red Blood Count 5.37 X10*6/uL (4.60-5.80); White Blood Count 4.4 X10*3/uL (4.8-10.8)
[2024-06-05 15:11] LABS: Estimated Average Glucose 85 mg/dL; Hemoglobin A1C 118.4269 umol/L; Hemoglobin A1c % 4.6 % (<6.0); Total Hemoglobin (HGBA1C) 4421.5959 umol/L
[2024-06-05 15:18] LABS: Alanine Aminotransferase 21 U/L (0-40); Albumin Level 4.8 g/dL (3.5-5.0); Anion Gap 11 (12-20); Aspartate Amino Transferase 24 U/L (5-37); Bilirubin Total 1.6 mg/dL (0.0-1.0); Blood Urea Nitrogen 12 mg/dL (9-16); Calcium 9.9 mg/dL (8.4-10.2); Carbon Dioxide 29 mmol/L (22-29); Chloride 105 mmol/L (96-108); Estimated Glomerular Filt Rate > 60; Glucose Random 75 mg/dL (60-115); Potassium 3.4 mmol/L (3.3-5.1); Sodium 142 mmol/L (135-145); Total Protein 7.4 g/dL (6.5-8.0)
[2024-06-05 15:21] LABS: Creatinine Urine 366.34 mg/dL; Microalbum/Creatinine Ratio Ur 4.3 ug/mg cr (<30)
[2024-06-05 15:28] LABS: Alkaline Phosphatase 54 U/L (39-117); TSH reflex Free T4 1.98 uIU/mL (0.32-4.0)
[2024-06-05 15:47] LABS: Folate 4.8 ng/mL (> or = 4.0); Vitamin B12 233 pg/mL (200-900)
--- OUTSIDE RECORDS SUMMARY | 2024-06-05 16:08 | XMS_ITS | Encounter Summary ---
Author Organization [facility] Address [address] [place] [address] Phone Care Team Providers Care Welding Machine Feeder Name Role Phone Juan Saavedra MD Primary Care Provider [phone] Encounter Details Date Type Department Care Team (Late st Contact Info) Description 02/05/2015 Documentation [facility] [place] [address] [place] [address] Family Medicine, Physician [facility] [place] [address] Social History Tobacco Use Types [...] on filedocumented in this encounter Care Teams Welding Machine Feeder Relationship Specialty Start Date End Date Juan Saavedra MD [address] [place] [address] [place] [address] PCP - General Pediatrics 04/03/17 10/03/22 documented as of this encounter
--- OUTSIDE RECORDS SUMMARY | 2024-06-05 16:08 | XMS_ITS | Clinical Summary ---
Author Organization [facility] Address [address] [place] [address] Phone Care Team Providers Care Fish And Wildlife Technician Name Role Phone Unavailable Primary Care Provider [...] Grimaldo Alive Brother: Alive and well Father Dmeetrio Grimaldo Alive Father: Alive a nd well [...]
--- OUTSIDE RECORDS SUMMARY | 2024-06-05 16:08 | XMS_ITS | Encounter Summary ---
Author Organization [facility] Address [address] [place] [address] Phone Care Team Providers Care Manager Merchandise Name Role Phone Juan Saavedra MD Primary Care Provider [phone] Encounter Details Date Type Department Care Team (Late st Contact Info) Description 02/22/2015 Documentation [facility] [place] [address] [place] [address] Family Medicine, Physician [facility] [place] [address] Social History Tobacco Use Types [...] on filedocumented in this encounter Care Teams Manager Merchandise Relationship Specialty Start Date End Date Juan Saavedra MD [address] [place] [address] [place] [address] PCP - General Pediatrics 04/03/17 10/03/22 documented as of this encounter
--- OUTSIDE RECORDS SUMMARY | 2024-06-05 16:08 | XMS_ITS | Encounter Summary ---
Author Organization [facility] Address [address] [place] [address] Phone Care Team Providers Care Staff Electrical Engineer Name Role Phone Juan Saavedra MD Primary Care Provider [phone] Encounter Details Date Type Department Care Team (Late st Contact Info) Description 07/10/2014 Documentation [facility] [place] [address] [place] [address] Family Medicine, Physician [facility] [place] [address] Social History Tobacco Use Types [...] on filedocumented in this encounter Care Teams Staff Electrical Engineer Relationship Specialty Start Date End Date Juan Saavedra MD [address] [place] [address] [place] [address] PCP - General Pediatrics 04/03/17 10/03/22 documented as of this encounter
--- OUTSIDE RECORDS SUMMARY | 2024-06-05 16:08 | XMS_ITS | Encounter Summary ---
Author Organization [facility] Address [address] [place] [address] Phone Care Team Providers Care Hydrometer Calibrator Name Role Phone Juan Saavedra MD Primary Care Provider [phone] Encounter Details Date Type Department Care Team (Late st Contact Info) Description 10/12/2016 Conversion Encounter [facility] [place] [address] [place] [address] Social History Tobacco Use Types Packs/Day Years [...] on filedocumented in this encounter Care Teams Hydrometer Calibrator Relationship Specialty Start Date End Date Juan Saavedra MD [address] [place] [address] PCP - General Pediatrics 04/03/17 10/03/22 documented as of this encounter
--- OUTSIDE RECORDS SUMMARY | 2024-06-05 16:08 | XMS_ITS | Encounter Summary ---
Author Organization [facility] Address [address] [place] [address] Phone Care Team Providers Care Electrical Journeyman Name Role Phone Juan Saavedra MD Primary Care Provider [phone] Encounter Details Date Type Department Care Team (Late st Contact Info) Description 07/08/2014 Documentation [facility] [place] [address] [place] [address] Family Medicine, Physician [place] [address] Social History Tobacco Use Types [...] on filedocumented in this encounter Care Teams Electrical Journeyman Relationship Specialty Start Date End Date Juan Saavedra MD [address] [place] [address] [place] [address] PCP - General Pediatrics 04/03/17 10/03/22 documented as of this encounter
--- OUTSIDE RECORDS SUMMARY | 2024-06-05 16:08 | XMS_ITS | Encounter Summary ---
Author Organization [facility] Address [address] [place] [address] Phone Care Team Providers Care Teacher Early Childhood Development Name Role Phone Juan Saavedra MD Primary Care Provider [phone] Encounter Details Date Type Department Care Team (Late st Contact Info) Description 12/07/2011 Documentation [facility] [place] [facility] [place] [address] [place] [address] Family Medicine, Physician [address] [place] [address] Social History Tobacco Use Types [...] on filedocumented in this encounter Care Teams Teacher Early Childhood Development Relationship Specialty Start Date End Date Juan Saavedra MD [address] [place] [address] [place] [address] PCP - General Pediatrics 04/03/17 10/03/22 documented as of this encounter
[2024-06-06 16:28] LABS: LDL Cholesterol Direct 89 mg/dL (<100)
== END 2024-06-05 13:22 | disposition home or self-care (01) ==
LOC: HO.WFDLDS 13:21
PROVIDERS: Family Medicine; Visit Provider Nurse Practitioner Family
DX: I10 Essential (primary) hypertension (principal); Z00.00 Encounter for general adult medical examination without abnormal findings; L08.9 Local infection of the skin and subcutaneous tissue, unspecified; Z13.1 Encounter for screening for diabetes mellitus
CPT/HCPCS: 36415; 80053; 82043; 82570; 82607; 82746; 83036; 83721; 84443; 85025